=== PATIENT | female | born 1985 | race American Indian/Alaskan Native ===

== ENCOUNTER 2021-09-18 16:30 | Emergency (ER) | payer SELFPAY ==
[2021-09-18] MEDS ORDERED: diphenhydrAMINE 50 MG/ML VIAL IV ONE (17:28)
[2021-09-18] MEDS ORDERED: FAMOTIDINE 20 MG/2 ML INJ IV ONE (17:28)
[2021-09-18] MEDS ORDERED: dexAMETHasone 20 MG/5 ML VIAL IV ONE (17:29)
[2021-09-18] MEDS ORDERED: SODIUM CHLORIDE 0.9% 1000 ML 1,000 ML IV ONE (17:32)
--- NOTE | 2021-09-18 17:32 | Emergency Department Report ---
HPI - General Chief Complaint: Allergic Reaction Time Seen by Provider: 09/18/21 17:27 - HPI HPI: The patient was evaluated in the emergency department for symptoms described in the history of present illness. He/she was evaluated in the context of the g lobal COVID-19 pandemic, which necessitated consideration that the patient might be at risk for infection with the virus that causes COVID-19. Institutional protocols and algorithms that pertain to the evaluation of patients at risk for COVID-19 are in a state of rapid change based on information released by regulatory bodies including the CDC and federal and state organizations. These policies and algorithms were followed during the patient's care in the emergency department. Please note that these policies, procedures and recommendations changed on a rapid basis. 36-year-old -[place] female presents to the emergency room complaining of a rash that has reappeared all over her body. Patient denies any recent changes of soap detergent perfumes lotions. She denies any new foods new medications except medication that she was placed on on September 10, 2021 of a azithromycin and prednisone for the same type of rash. Patient denies any new pets no new chemical exposure no new close or new sheets. Patient any difficulty swallowing difficulty breathing. Patient does state she has had some shortness of breath in the morning when she wakes up but that tends to resolve. She states that the rash starts in the morning but progressively through the day gets worse. Patient does admit to being under increased stress. ED Past Medical Hx - Past Medical History Previous Medical History?: Yes Additional medical history: allergic reaction - Surgical History Past Surgical History?: Yes Additional Surgical History: Exp lap - Medications Home Medications: Home Medications Medication Instructions Recorded Confirmed Last Taken Type Cetirizine HCl [Zyrtec 10mg tab] 10 mg PO QDAY #14 tablet 09/18/21 Unknown Rx Famotidine [Pepcid] 20 mg PO BID #20 tablet 09/18/21 Unknown Rx Prednisone [predniSONE 10 mg 10 mg PO .TAPER #1 tab.ds.pk 09/18/21 Unknown Rx (6-Day Pack, 21 Tabs)] ED Review of Systems ROS: Stated complaint: HIVES ON NECK,ABD,ARMS,CHEST Other details as noted in HPI Comment: All other systems reviewed and negative Physical Exam - Physical Exam Vital Signs: Vital Signs 09/18/21 17:02 Temperature 98.5 F Pulse Rate 94 H Respiratory 16 Rate Blood Pressure 118/82 O2 Sat by Pulse 99 Oximetry Physical Exam: Patient is alert and oriented x3 no acute distress nontoxic in appearance Regular rate and rhythm No respiratory distress no accessory muscle use Skin rash chest arms abdomen back that is erythematous, and papular Ambulatory without difficulty Stable mood no signs of depression ED Course Vital Signs 09/18/21 17:02 Temperature 98.5 F Pulse Rate 94 H Respiratory 16 Rate Blood Pressure 118/82 O2 Sat by Pulse 99 Oximetry ED Medical Decision Making - Medical Decision Making 36-year-old -[place] female presents to the emergency room complaining of a rash that has reappeared all over her body. Patient denies any recent changes of soap detergent perfumes lotions. She denies any new foods new medications except medication that she was placed on on September 10, 2021 of a azithromycin and prednisone for the same type of rash. Patient denies any new pets no new chemical exposure no new close or new sheets. Patient any difficulty swallowing difficulty breathing. Patient does state she has had some shortness of breath in the morning when she wakes up but that tends to resolve. She states that the rash starts in the morning but progressively through the day gets worse. Patient does admit to being under increased stress. INT, IV Benadryl 25 mg IV Pepcid 20 mg IV dexamethasone 10 mg has been ordered. IV normal saline has been ordered Patient will be discharged home on Zyrtec 10 mg for 2 weeks, Pepcid twice a day for 2 weeks and prednisone 10 mg taper. 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 Patient verbalized understanding of treatment and plan. Critical care attestation.: If time is entered above; I have spent that time in minutes in the direct care of this critically ill patient, excluding procedure time. ED Disposition Clinical Impression: Rash and nonspecific skin eruption Disposition: HOME / SELF CARE / HOMELESS Is pt being admited?: No Does the pt Need Aspirin: No Condition: Stable Instructions: Rash, Adult, [id number] Additional Instructions: Please take medications as prescribed. It is very important to increase your fluid intake. It is more important you follow-up with a primary care provider and an experimental physicist. Prescriptions: Famotidine [Pepcid] 20 mg PO BID #20 tablet Prednisone [predniSONE 10 mg (6-Day Pack, 21 Tabs)] 10 mg PO .TAPER #1 tab.ds.pk Cetirizine HCl [Zyrtec 10mg tab] 10 mg PO QDAY #14 tablet Referrals: COLLIN CENTENO MD [Staff Physician] - 3-5 Days [facility] [Provider Group] - 3-5 Days Forms: Work/School Release Form(ED) Time of Disposition: 18:48
[2021-09-18 19:19] VITALS: BP 116/78
== END 2021-09-18 19:15 | disposition home or self-care (01) ==
LOC: ED 16:30
DX: R21 Rash and other nonspecific skin eruption (principal)
CPT/HCPCS: 96361; 96374; 96375; 99282; J1100; J1200; J7030